=== PATIENT | female | born 1935 | race Caucasian/White ===

== ENCOUNTER 2017-05-28 09:05 | Inpatient (IN) | payer MEDICARE, OTHER ==
[~2017-05-28] VITALS: Ht 152.4 cm; Wt 50.0 kg
[2017-05-28] MEDS ORDERED: MEDROXYPROGESTERONE 2.5 MG TAB (09:19)
[2017-05-28] MEDS ORDERED: PANTOPRAZOLE SOD DR 40 MG TAB (09:19)
[2017-05-28] MEDS ORDERED: HYDROCODONE-ACETAMIN 5-325 MG (09:19)
[2017-05-28] MEDS ORDERED: [UNRECOGNIZED DRUG - OTHER] (09:19)
[2017-05-28] MEDS ORDERED: ATORVASTATIN 20 MG TABLET (09:19)
[2017-05-28] MEDS ORDERED: TRAMADOL HCL 50 MG TABLET (09:19)
[2017-05-28] MEDS ORDERED: ESTRADIOL 1 MG TABLET (09:19)
[2017-05-28] MEDS ORDERED: CLOPIDOGREL 75 MG TABLET (09:19)
[2017-05-28] MEDS ORDERED: GABAPENTIN 300 MG CAPSULE (09:19)
[2017-05-28 11:12] LABS: BASOPHILS # (AUTO) 0.1 K/uL (0.0-8.0); BASOPHILS % (AUTO) 0.6 % (0.0-2.0); EOSINOPHILS # (AUTO) 0.1 K/uL (0.0-0.7); EOSINOPHILS % (AUTO) 0.8 % (0.0-7.0); HEMATOCRIT 33.9 % (31.2-41.9); HEMOGLOBIN 11.5 g/dL (10.9-14.3); LYMPHOCYTES # (AUTO) 1.5 K/uL (20.0-40.0); LYMPHOCYTES % (AUTO) 16.4 % (20.5-51.5); MEAN CORPUSCULAR HEMOGLOBIN 35.6 uug (24.7-32.8); MEAN CORPUSCULAR HGB CONC 34 g/dL (32.3-35.6); MEAN CORPUSCULAR VOLUME 105.3 fL (75.5-95.3); MONOCYTES # (AUTO) 1.3 K/uL (2.0-10.0); MONOCYTES % (AUTO) 14.1 % (0.0-11.0); NEUTROPHILS # (AUTO) 6.1 K/uL (1.8-8.9); NEUTROPHILS % (AUTO) 68.1 % (38.5-71.5); PLATELET COUNT (AUTO) 241 K/uL (179-408); RED BLOOD CELL COUNT(AUTO) 3.22 MIL/uL (3.63-4.92); WHITE BLOOD COUNT (AUTO) 8.9 K/uL (3.8-11.8)
[2017-05-28 11:55] LABS: ALANINE AMINOTRANSFERASE 24 U/L (14-59); ALKALINE PHOSPHATASE 127 U/L (50-136); ASPARTATE AMINOTRANSFERASE 37 U/L (15-37); BILIRUBIN,DIRECT 0.1 mg/dL (0.0-0.2); BILIRUBIN,TOTAL 0.6 mg/dL (0.2-1.0); CARBON DIOXIDE 28 mmol/L (21-32); CHLORIDE 96 mmol/L (98-107); CREATININE 5.3 mg/dL (0.6-1.3); GLUCOSE 108 mg/dL (74-106); POTASSIUM 3.4 mmol/L (3.5-5.1); TOTAL PROTEIN, SERUM 6.6 g/dL (6.4-8.2); UREA NITROGEN, BLOOD 46 mg/dL (7-18)
--- NOTE | 2017-05-28 11:57 | NUR ---
merry lozano called and said she is a long time friend and has power of securities attorney for pt. pt approved it. her phone is [phone].
--- NOTE | 2017-05-28 13:01 | NUR ---
the pt does not know the doasges of the meds and she says there is no one at home to call and read off the bottles at this point.
--- NOTE | 2017-05-28 13:50 | NUR ---
called dr. arechiga for ortho consult
[2017-05-28] MEDS ORDERED: HYDROCODONE/APAP 5-325MG TABLET ONE (14:01)
[2017-05-28] MEDS ORDERED: HYDROCODONE/APAP 5-325MG TABLET PO ONE (14:15)
[2017-05-28] MEDS ORDERED: ONDANSETRON 4 MG/2 ML VIAL IV PRN (14:30)
[2017-05-28] MEDS ORDERED: MORPHINE SULFATE 2 MG/1 ML DISP.SYRIN IV PRN (14:30)
--- NOTE | 2017-05-28 14:44 | NUR ---
PT TRANSFERED TO FLOOR IN STABLE CONDITION.
[2017-05-28] MEDS: MORPHINE SULFATE 4 MG/1 ML DISP.SYRIN IV PRN (16:23)
[2017-05-28 16:30] VITALS: BP 96/39
--- NOTE | 2017-05-28 20:00 | NUR ---
nsg:pt received a/o x 4, no acute distress noted. just c/o of mild itching due to very dry skin. tele, SR. v/s stable. has left chest quintine catheter and av shunt on right upper arm. 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 on strict bedrest due to right patellar fracture. has right knee immobilizer. call light within reach.
[2017-05-28 20:06] VITALS: BP 90/44
[2017-05-28] MEDS: ATORVASTATIN 20 MG TABLET PO SCH (20:42)
[2017-05-28] MEDS: HEPARIN SODIUM,PORCINE 5,000 UNITS/ML VIAL SQ SCH (20:44)
[2017-05-28] MEDS ORDERED: POTASSIUM CHLORIDE 10 MEQ CAPSULE.SA PO ONE (20:45)
[2017-05-29 00:03] VITALS: BP 92/31
[2017-05-29] MEDS: MORPHINE SULFATE 4 MG/1 ML DISP.SYRIN IV PRN (02:30)
[2017-05-29 04:27] VITALS: BP 93/31
[2017-05-29] MEDS: PANTOPRAZOLE SODIUM 40 MG TABLET.DR PO SCH (05:41)
[2017-05-29 06:37] LABS: BASOPHILS % (AUTO) 0.6 % (0.0-2.0); EOSINOPHILS # (AUTO) 0.1 K/uL (0.0-0.7); EOSINOPHILS % (AUTO) 1.1 % (0.0-7.0); HEMATOCRIT 28.6 % (31.2-41.9); HEMOGLOBIN 9.7 g/dL (10.9-14.3); LYMPHOCYTES # (AUTO) 1.6 K/uL (20.0-40.0); LYMPHOCYTES % (AUTO) 24.6 % (20.5-51.5); MEAN CORPUSCULAR HEMOGLOBIN 35.4 uug (24.7-32.8); MEAN CORPUSCULAR HGB CONC 34 g/dL (32.3-35.6); MEAN CORPUSCULAR VOLUME 104.8 fL (75.5-95.3); MONOCYTES # (AUTO) 0.9 K/uL (2.0-10.0); MONOCYTES % (AUTO) 13.5 % (0.0-11.0); NEUTROPHILS % (AUTO) 60.2 % (38.5-71.5); PLATELET COUNT (AUTO) 222 K/uL (179-408); RED BLOOD CELL COUNT(AUTO) 2.73 MIL/uL (3.63-4.92); WHITE BLOOD COUNT (AUTO) 6.6 K/uL (3.8-11.8)
[2017-05-29 06:57] LABS: THYROID STIMULATING HORMONE 4.967 mIU/mL (0.358-3.740)
[2017-05-29 07:06] LABS: ALANINE AMINOTRANSFERASE 21 U/L (14-59); ALKALINE PHOSPHATASE 108 U/L (50-136); ASPARTATE AMINOTRANSFERASE 28 U/L (15-37); BILIRUBIN,TOTAL 0.5 mg/dL (0.2-1.0); CARBON DIOXIDE 28 mmol/L (21-32); CHLORIDE 96 mmol/L (98-107); CHOLESTEROL 168 mg/dL (<200); CREATININE 6.5 mg/dL (0.6-1.3); GLUCOSE 105 mg/dL (74-106); HDL CHOLESTEROL 82 mg/dL (40-60); MAGNESIUM 1.9 mg/dL (1.8-2.4); PHOSPHOROUS 6.4 mg/dL (2.5-4.9); TOTAL PROTEIN, SERUM 5.6 g/dL (6.4-8.2); TRIGLYCERIDES 111 MG/DL (30-150); UREA NITROGEN, BLOOD 56 mg/dL (7-18)
[2017-05-29 07:18] LABS: CREATINE KINASE, TOTAL 418 U/L (26-192)
[2017-05-29] MEDS: HEPARIN SODIUM,PORCINE 5,000 UNITS/ML VIAL SQ SCH (09:09)
[2017-05-29] MEDS: GABAPENTIN 300 MG CAPSULE PO SCH (09:09)
--- NOTE | 2017-05-29 09:39 | NUR ---
Pt.on HD,tolerated well,no s/s of distress,denies any pain.
[2017-05-29 10:48] LABS: IRON, SERUM 32 ug/dL (50-175)
[2017-05-29 11:21] VITALS: BP 96/48
--- NOTE | 2017-05-29 13:43 | NUR ---
PT. A/A/OX3 WATCHING TV, NO S/S OF DISTRESS,DENIES PAIN @ TIME.
[2017-05-29 15:22] VITALS: BP 106/41
--- NOTE | 2017-05-29 18:10 | NUR ---
No changes in pt.condition.
--- NOTE | 2017-05-29 19:30 | NUR ---
PT IN ROOM ASLEEP IN NO ACUTE DISTRESS SINCE HD EARLIER TODAY. PT NOTED SINUS RHYTHM NOTED. CONTINUE TO MONITOR.
[2017-05-29 20:00] VITALS: BP 90/55
[2017-05-29] MEDS: ACETAMINOPHEN 325 MG TABLET PO PRN (21:12)
[2017-05-29] MEDS: ATORVASTATIN 20 MG TABLET PO SCH (21:12)
--- NOTE | 2017-05-30 01:00 | NUR ---
Pt asleep in no acute distress. Call light within normal range. Pt maintaining medsurg unit at this time.
--- NOTE | 2017-05-30 05:17 | NUR ---
Pt in room alert awake in no acute distress. Denies any mccarthy but minimal discomfort to right lower extremity. Immobilizer in place and pt is able to make needs known. States her hearing aid batteries are no longer working. V/S are WNL. Pt repositioned and HOB maintained 30 degreegs. Continue to monitor. AV shunts are in tact with no active bleeding noted. Call light placed within reach.
[2017-05-30] MEDS: ACETAMINOPHEN 325 MG TABLET PO PRN ×2 (05:28→15:58)
[2017-05-30] MEDS: PANTOPRAZOLE SODIUM 40 MG TABLET.DR PO SCH (06:02)
[2017-05-30 06:33] VITALS: BP 105/47
--- NOTE | 2017-05-30 07:55 | NUR ---
RECEIVED SHIFT REPORT FROM WINDOW CLERK NURSE. PATIENT A/O, STABLE CONDITION, NO S/S OF DISTRESS. BED IN LOCKED/LOW POSITION, SIDE RAILS UP X2, BED ALARM ON, CALL LIGHT WITHIN REACH. SAFETY/COMFORT WILL BE PROVIDED.
[2017-05-30 08:11] LABS: BASOPHILS % (AUTO) 0.6 % (0.0-2.0); EOSINOPHILS # (AUTO) 0.1 K/uL (0.0-0.7); EOSINOPHILS % (AUTO) 1.3 % (0.0-7.0); HEMATOCRIT 29.7 % (31.2-41.9); LYMPHOCYTES # (AUTO) 1.7 K/uL (20.0-40.0); MEAN CORPUSCULAR HEMOGLOBIN 35.4 uug (24.7-32.8); MEAN CORPUSCULAR HGB CONC 34 g/dL (32.3-35.6); MEAN CORPUSCULAR VOLUME 105.4 fL (75.5-95.3); MONOCYTES # (AUTO) 0.9 K/uL (2.0-10.0); MONOCYTES % (AUTO) 14.9 % (0.0-11.0); NEUTROPHILS # (AUTO) 3.5 K/uL (1.8-8.9); NEUTROPHILS % (AUTO) 56.2 % (38.5-71.5); PLATELET COUNT (AUTO) 200 K/uL (179-408); RED BLOOD CELL COUNT(AUTO) 2.82 MIL/uL (3.63-4.92); WHITE BLOOD COUNT (AUTO) 6.2 K/uL (3.8-11.8)
[2017-05-30 08:20] LABS: ALANINE AMINOTRANSFERASE 22 U/L (14-59); ALKALINE PHOSPHATASE 102 U/L (50-136); ASPARTATE AMINOTRANSFERASE 29 U/L (15-37); BILIRUBIN,TOTAL 0.4 mg/dL (0.2-1.0); CARBON DIOXIDE 31 mmol/L (21-32); CHLORIDE 99 mmol/L (98-107); CREATININE 4.5 mg/dL (0.6-1.3); GLUCOSE 132 mg/dL (74-106); MAGNESIUM 1.9 mg/dL (1.8-2.4); PHOSPHOROUS 4.7 mg/dL (2.5-4.9); POTASSIUM 3.2 mmol/L (3.5-5.1); TOTAL PROTEIN, SERUM 5.7 g/dL (6.4-8.2); UREA NITROGEN, BLOOD 30 mg/dL (7-18)
[2017-05-30] MEDS: CLOPIDOGREL 75 MG TABLET PO SCH (08:20)
[2017-05-30] MEDS: GABAPENTIN 300 MG CAPSULE PO SCH (08:20)
[2017-05-30] MEDS ORDERED: POTASSIUM CHLORIDE 20 MEQ TAB.PRT.SR PO ONE (11:00)
[2017-05-30 11:09] VITALS: BP 119/42
[2017-05-30 15:16] VITALS: BP 91/43
[2017-05-30] MEDS: ASPIRIN EC 81 MG TABLET.DR PO SCH (15:47)
--- NOTE | 2017-05-30 17:48 | NUR ---
PATIENT RESTING COMFORTABLY IN BED AT THIS MOMENT. TOLERATING DIET. STABLE CONDITION, NO S/S OF DISTRESS. PATIENT HAS NOT HAD A BOWEL MOVEMENT, AND IS ANURIC (PENDING STOOL OB AND URINE CULTURE). CONTINUES TO BE ON BEDREST DUE TO RIGHT KNEE FRACTURE. PAIN MANAGEMENT PROVIDED. SKIN CARE PROVIDED. BED IN LOCKED/LOW POSITION, SIDE RAILS UP X2, BED ALARM ON, CALL LIGHT WITHIN REACH. SAFETY/COMFORT PROVIDED.
--- NOTE | 2017-05-30 19:27 | NUR ---
PT IN ROOM ALERT AWAKE IN NO ACUTE DISTRESS. ABLE TO FOLLOW SIMPLE COMMANDS WITHOUT DIFFICULTY. MAINTAINING RIGHT KNEE IMMOBILIZED. DENIES ANY PAIN OR DISCOMFORT AT THIS TIME. CONTINUE TO MONITOR. CALL LIGHT PLACED WITHIN REACH.
[2017-05-30 20:13] VITALS: BP 95/34
[2017-05-30] MEDS: TRAMADOL HCL 50 MG TABLET PO PRN (21:25)
[2017-05-30] MEDS: ATORVASTATIN 20 MG TABLET PO SCH (21:25)
[2017-05-31] MEDS: ACETAMINOPHEN 325 MG TABLET PO PRN ×2 (00:30→06:08)
--- NOTE | 2017-05-31 01:00 | NUR ---
PT IN ROOM ALERT AWAKE AND REQUESTED TYLENOL FOR PAIN TO RIGHT KNEE. CONTINUE TO MONITOR. CALL LIGHT PLACED WITHIN REACH.
[2017-05-31 04:00] VITALS: BP 111/43
[2017-05-31] MEDS: TRAMADOL HCL 50 MG TABLET PO PRN (04:10)
--- NOTE | 2017-05-31 06:00 | NUR ---
PT IN ROOM ALERT AWAKE AND HAS BEEN RECEIVING PRN TYLENOL AND TRAMADOL D/T PAIN TO RIGHT KNEE. PT UNABLE TO URINATE OR HAVE BOWEL MOVEMENT BUT STATES 'I FEEL LIKE I CAN GO BUT NOTHING IS COMING OUT". PT MADE AWARE OF UPCOMING DIALYSIS. NO NEW ORDERS AT THIS TIME. CONTINUE TO MONITOR. CALL LIGHT PLACED WITHIN REACH.
[2017-05-31 06:06] LABS: BASOPHILS % (AUTO) 0.6 % (0.0-2.0); EOSINOPHILS # (AUTO) 0.2 K/uL (0.0-0.7); EOSINOPHILS % (AUTO) 2.8 % (0.0-7.0); HEMATOCRIT 28.4 % (31.2-41.9); HEMOGLOBIN 9.6 g/dL (10.9-14.3); LYMPHOCYTES # (AUTO) 1.8 K/uL (20.0-40.0); LYMPHOCYTES % (AUTO) 28.2 % (20.5-51.5); MEAN CORPUSCULAR HEMOGLOBIN 35.3 uug (24.7-32.8); MEAN CORPUSCULAR HGB CONC 34 g/dL (32.3-35.6); MEAN CORPUSCULAR VOLUME 104.9 fL (75.5-95.3); MONOCYTES # (AUTO) 0.9 K/uL (2.0-10.0); MONOCYTES % (AUTO) 13.3 % (0.0-11.0); NEUTROPHILS # (AUTO) 3.6 K/uL (1.8-8.9); NEUTROPHILS % (AUTO) 55.1 % (38.5-71.5); PLATELET COUNT (AUTO) 215 K/uL (179-408); RED BLOOD CELL COUNT(AUTO) 2.71 MIL/uL (3.63-4.92); WHITE BLOOD COUNT (AUTO) 6.5 K/uL (3.8-11.8)
[2017-05-31] MEDS: PANTOPRAZOLE SODIUM 40 MG TABLET.DR PO SCH (06:08)
[2017-05-31 06:19] LABS: ALANINE AMINOTRANSFERASE 18 U/L (14-59); ALKALINE PHOSPHATASE 103 U/L (50-136); ASPARTATE AMINOTRANSFERASE 23 U/L (15-37); BILIRUBIN,TOTAL 0.3 mg/dL (0.2-1.0); CARBON DIOXIDE 30 mmol/L (21-32); CHLORIDE 95 mmol/L (98-107); CREATININE 5.9 mg/dL (0.6-1.3); GLUCOSE 106 mg/dL (74-106); MAGNESIUM 1.8 mg/dL (1.8-2.4); PHOSPHOROUS 5.3 mg/dL (2.5-4.9); POTASSIUM 4.4 mmol/L (3.5-5.1); TOTAL PROTEIN, SERUM 5.7 g/dL (6.4-8.2); UREA NITROGEN, BLOOD 43 mg/dL (7-18)
--- NOTE | 2017-05-31 07:07 | NUR ---
PATIENT RESTING COMFORTABLY IN BED AT THIS TIME. STABLE CONDITION, NO S/S OF DISTRESS. PLANNED TO HAVE DIALYSIS TODAY. BED IN LOCKED/LOW POSITION, SIDE RAILS UP X2, BED ALARM ON, CALL LIGHT WITHIN REACH. COMFORT/SAFETY WILL BE PROVIDED.
--- NOTE | 2017-05-31 08:00 | NUR ---
DIALYSIS STARTED AT THIS TIME. MORNING MEDICATIONS WILL BE HELD UNTIL AFTER DIALYSIS IS COMPLETED - 0900 PLAVIX HELD - 0900 ASPIRIN HELD - 0900 GABAPENTIN HELD
[2017-05-31 11:26] VITALS: BP 110/43
[2017-05-31] MEDS ORDERED: BISACODYL 10 MG SUPP.RECT RC PRN (11:45)
[2017-05-31] MEDS ORDERED: BISACODYL 5 MG TABLET.DR PO ONE (11:45)
[2017-05-31] MEDS ORDERED: MIRALAX 17 GM POWD.PACK PO PRN (11:45)
[2017-05-31] MEDS: GABAPENTIN 300 MG CAPSULE PO SCH (11:49)
[2017-05-31] MEDS: CLOPIDOGREL 75 MG TABLET PO SCH (11:49)
[2017-05-31] MEDS: ASPIRIN EC 81 MG TABLET.DR PO SCH (11:49)
[2017-05-31] MEDS: DOCUSATE SODIUM 100 MG CAPSULE PO SCH ×2 (11:54→20:05)
[2017-05-31 15:12] VITALS: BP 114/46
--- NOTE | 2017-05-31 17:44 | NUR ---
PATIENT HAS BEEN RESTING COMFORTABLY IN BED THROUGHOUT THE DAY. VERBALIZED THAT SHE FELT WEAK AFTER DIALYSIS. PATIENT IN STABLE CONDITION, NO S/S OF DISTRESS. VITAL SIGNS STABLE. PT EVALUATION WAS DONE TODAY AND PATIENT HAS VERY UNSTEADY GAIT DUE TO WEAKNESS. DIALYSIS DONE TODAY, 1.5 LITERS OUT. PATIENT HAS NOT HAD BOWEL MOVEMENT EVEN WITH COLACE AND DULCOLAX ADMINISTERED TODAY. HAS NOT URINATED. PATIENT HAS BEEN TOLERATING DIET. KNEE BRACE CONTINUES TO BE ON FOR RIGHT KNEE. BED IN LOCKED/LOW POSITION, SIDE RAILS UP X2, BED ALARM ON, CALL LIGHT WITHIN REACH.
[2017-05-31 18:06] VITALS: BP 115/80
[2017-05-31 18:13] VITALS: BP 119/74
--- NOTE | 2017-05-31 19:25 | NUR ---
PT RECEIVED IN BED, AWAKE. A/OX4. ABLE TO MAKE NEEDS KNOWN. V/S STABLE. IN NO ACUTE DISTRESS. NO C/O PAIN AT THIS TIME. IV INTACT AND PATENT. ON RA, TOLERATING WELL. AFEBRILE. AV SHUNT ON LEXX AND LEDT SUBCLAV[place] REGION, THRILL FELT. RIGHT KNEWW IN BRACE, ELEVATED. SAFETY MEASURES IMPLEMENTED. BED ALARM SET. CALL LIGHT WITHIN REACH.
[2017-05-31 20:00] VITALS: BP 120/38
[2017-05-31] MEDS: ATORVASTATIN 20 MG TABLET PO SCH (20:05)
[2017-06-01] MEDS: MORPHINE SULFATE 4 MG/1 ML DISP.SYRIN IV PRN ×2 (03:11→14:35)
[2017-06-01] MEDS: TRAMADOL HCL 50 MG TABLET PO PRN (03:45)
[2017-06-01 04:44] VITALS: BP 122/48
[2017-06-01] MEDS: PANTOPRAZOLE SODIUM 40 MG TABLET.DR PO SCH (06:13)
--- NOTE | 2017-06-01 06:15 | NUR ---
END OF SHIFT NOTES. PT SLEPT INTERMITTENTLY THROUGHOUT SHIFT. IN STABLE CONDITION. PT C/O OF RIGHT LEG PAIN MANAGED THROUGHOUT SHIFT. PAIN MEDICATION ADMINISTERED ORDERED. PT RIGHT LEG BRACE IN PLACE, NO ACUTE CHANGES NOTED. BILATERAL LEGS ELEVATED. PT CONTINUES WITH NO BM, ADAM SOFTENER PROVIDED. HOB ELEVATED. ALL NEEDS ATTENDED. SAFETY MAINTAINED. CALL LIGHT WITHIN REACH.
[2017-06-01] MEDS: GABAPENTIN 300 MG CAPSULE PO SCH (08:02)
[2017-06-01] MEDS: ASPIRIN EC 81 MG TABLET.DR PO SCH (08:02)
[2017-06-01] MEDS: CLOPIDOGREL 75 MG TABLET PO SCH (08:02)
[2017-06-01] MEDS: DOCUSATE SODIUM 100 MG CAPSULE PO SCH ×2 (08:02→20:59)
--- NOTE | 2017-06-01 09:47 | NUR ---
plan of care for today is pain management and continue to monitor for BM and improve constipation. pt given colace for constipation. Continue to monitor pt.
[2017-06-01] MEDS ORDERED: LACTULOSE 20 G/30 ML LIQUID UDC PO ONE (11:15)
[2017-06-01] MEDS ORDERED: BISACODYL 10 MG SUPP.RECT RC ONE (11:15)
[2017-06-01 11:30] VITALS: BP 105/47
[2017-06-01 11:35] LABS: BASOPHILS % (AUTO) 0.7 % (0.0-2.0); EOSINOPHILS # (AUTO) 0.2 K/uL (0.0-0.7); EOSINOPHILS % (AUTO) 3.1 % (0.0-7.0); HEMATOCRIT 27.2 % (31.2-41.9); HEMOGLOBIN 9.1 g/dL (10.9-14.3); LYMPHOCYTES # (AUTO) 1.3 K/uL (20.0-40.0); LYMPHOCYTES % (AUTO) 20.8 % (20.5-51.5); MEAN CORPUSCULAR HEMOGLOBIN 35.1 uug (24.7-32.8); MEAN CORPUSCULAR HGB CONC 34 g/dL (32.3-35.6); MEAN CORPUSCULAR VOLUME 104.8 fL (75.5-95.3); MONOCYTES # (AUTO) 0.9 K/uL (2.0-10.0); MONOCYTES % (AUTO) 13.6 % (0.0-11.0); NEUTROPHILS # (AUTO) 3.9 K/uL (1.8-8.9); NEUTROPHILS % (AUTO) 61.8 % (38.5-71.5); PLATELET COUNT (AUTO) 188 K/uL (179-408); WHITE BLOOD COUNT (AUTO) 6.3 K/uL (3.8-11.8)
[2017-06-01 11:57] LABS: ALANINE AMINOTRANSFERASE 23 U/L (14-59); ALKALINE PHOSPHATASE 106 U/L (50-136); ASPARTATE AMINOTRANSFERASE 17 U/L (15-37); BILIRUBIN,TOTAL 0.3 mg/dL (0.2-1.0); CARBON DIOXIDE 29 mmol/L (21-32); CHLORIDE 97 mmol/L (98-107); CREATININE 5.6 mg/dL (0.6-1.3); GLUCOSE 116 mg/dL (74-106); MAGNESIUM 1.9 mg/dL (1.8-2.4); PHOSPHOROUS 5.2 mg/dL (2.5-4.9); POTASSIUM 4.3 mmol/L (3.5-5.1); TOTAL PROTEIN, SERUM 5.6 g/dL (6.4-8.2); UREA NITROGEN, BLOOD 43 mg/dL (7-18)
[2017-06-01 15:26] VITALS: BP 125/52
--- NOTE | 2017-06-01 18:19 | NUR ---
PT'S PAIN MANAGED WITH PAIN MEDS, BREATHING TECHNIQUES AND DISTRACTION. PT IS AGREEABLE WITH CARE. PT RESTING WITH NO SIGNS OF RESPIRATORY DISTRESS. BED AT LOWEST LOCKED POSITION. REDNESS AND SMALL CUT IN SACRAL AREA. MEPILEX APPLIED TO AREA. PT DENIES PAIN AT THIS TIME. PT AGREEABLE WITH PLAN OF CARE. CONTINUE TO MONITOR PT.
--- NOTE | 2017-06-01 18:43 | NUR ---
PT HAD A BM, STOOL WAS COLLECTED AND SENT TO LAB.
[2017-06-01 20:05] VITALS: BP 120/74
[2017-06-01 20:09] LABS: *OCCULT BLOOD STOOL NEGATIVE (NEGATIVE)
[2017-06-01] MEDS: ATORVASTATIN 20 MG TABLET PO SCH (20:59)
--- NOTE | 2017-06-01 22:39 | NUR ---
VENRACQUELD DOPPLER OF RUE CURRENTLY BEING PERFORMED AT BEDSIDE. PATIENT HAS QUESTIONS REGARDING HER PLAN OF CARE. SAYS SHES NOT READY TO BE DISCHARGED. TOLD PATIENT WILL DISCUSS PLAN OF CARE WITH DOCTOR TOMORROW DURING HIS ROUNDS.
[2017-06-02 05:56] VITALS: BP 115/42
[2017-06-02 06:36] LABS: ALANINE AMINOTRANSFERASE 18 U/L (14-59); ALKALINE PHOSPHATASE 98 U/L (50-136); ASPARTATE AMINOTRANSFERASE 16 U/L (15-37); BILIRUBIN,TOTAL 0.4 mg/dL (0.2-1.0); CARBON DIOXIDE 24 mmol/L (21-32); CHLORIDE 97 mmol/L (98-107); CREATININE 6.1 mg/dL (0.6-1.3); GLUCOSE 107 mg/dL (74-106); PHOSPHOROUS 6.6 mg/dL (2.5-4.9); POTASSIUM 4.1 mmol/L (3.5-5.1); TOTAL PROTEIN, SERUM 5.8 g/dL (6.4-8.2); UREA NITROGEN, BLOOD 52 mg/dL (7-18)
[2017-06-02] MEDS: PANTOPRAZOLE SODIUM 40 MG TABLET.DR PO SCH (06:45)
[2017-06-02 06:59] LABS: BASOPHILS % (AUTO) 0.5 % (0.0-2.0); EOSINOPHILS # (AUTO) 0.2 K/uL (0.0-0.7); HEMATOCRIT 28.5 % (31.2-41.9); HEMOGLOBIN 9.5 g/dL (10.9-14.3); LYMPHOCYTES # (AUTO) 1.3 K/uL (20.0-40.0); LYMPHOCYTES % (AUTO) 14.3 % (20.5-51.5); MEAN CORPUSCULAR HEMOGLOBIN 34.6 uug (24.7-32.8); MEAN CORPUSCULAR HGB CONC 33 g/dL (32.3-35.6); MEAN CORPUSCULAR VOLUME 103.8 fL (75.5-95.3); MONOCYTES # (AUTO) 1.1 K/uL (2.0-10.0); MONOCYTES % (AUTO) 12.8 % (0.0-11.0); NEUTROPHILS # (AUTO) 6.3 K/uL (1.8-8.9); NEUTROPHILS % (AUTO) 70.4 % (38.5-71.5); PLATELET COUNT (AUTO) 213 K/uL (179-408); RED BLOOD CELL COUNT(AUTO) 2.75 MIL/uL (3.63-4.92)
[2017-06-02 07:07] LABS: WHITE BLOOD COUNT (AUTO) 8.9 K/uL (3.8-11.8)
[2017-06-02] MEDS: DOCUSATE SODIUM 100 MG CAPSULE PO SCH (09:00)
[2017-06-02] MEDS: ASPIRIN EC 81 MG TABLET.DR PO SCH (09:54)
[2017-06-02] MEDS: GABAPENTIN 300 MG CAPSULE PO SCH (09:54)
[2017-06-02] MEDS: MORPHINE SULFATE 4 MG/1 ML DISP.SYRIN IV PRN (09:54)
[2017-06-02] MEDS: CLOPIDOGREL 75 MG TABLET PO SCH (09:55)
[2017-06-02 11:20] VITALS: BP 113/47
--- NOTE | 2017-06-02 11:33 | NUR ---
PT RECEIVED DIALYSIS TODAY, 2L REMOVED. RIGHT ARM IS SWOLLEN. ARM WAS ELEVATED AND ICE APPLIED. PT BODY ASSESSED, PT HAS SACRAL REDNESS WITH SMALL CUT. RIGHT HEEL IS PAINFUL TO THE TOUCH AND BLACK. PICTURE TAKEN AND PLACED IN CHART.A HEEL MEDIX BOOT WAS APPLIED. PT SACRAL AREA HAD A MEPILEX APPLIED AND PILLOW WEDGED UNDER ONE HIP. POSITIONING EFFECTIVE.
[2017-06-02] MEDS ORDERED: POLY17PO4 PO (12:14)
[2017-06-02] MEDS ORDERED: ASPI-618 PO (12:14)
[2017-06-02] MEDS ORDERED: PANT40TA2 PO (12:14)
[2017-06-02] MEDS ORDERED: TRAM50TA2 PO (12:14)
[2017-06-02] MEDS ORDERED: ATOR20TA PO (12:14)
[2017-06-02] MEDS ORDERED: BISA10SU12 RC (12:14)
[2017-06-02] MEDS ORDERED: DOCU100C36 PO (12:14)
[2017-06-02] MEDS ORDERED: GABA-534 PO (12:14)
[2017-06-02] MEDS ORDERED: ACET325T53 PO (12:14)
[2017-06-02] MEDS ORDERED: HYDR-3326 PO (12:14)
[2017-06-02] MEDS ORDERED: CLOP75TA15 PO (12:14)
[2017-06-02 15:30] VITALS: BP 115/40
--- NOTE | 2017-06-02 18:26 | NUR ---
PT OBSERVED RESTING IN BED RIGHT ARM ELEVATED AND ICED. BOOT ON RIGHT FOOT. NO SIGNS OF RESPIRATORY DISTRESS. STABLE. EXIT-CARE AND D/C PAPER WORK SIGNED. REPORT GIVEN TO JAQUAN AT [facility]. AMBULANCE SCHEDULE TO ARRIVE ON UNIT AT 1900. PICTURES TAKEN AND PLACED IN THE CHART OF SACRAL AREA, RIGHT HEELS AND PREVIOUS PICTURES FROM ADMISSION.
--- NOTE | 2017-06-02 20:15 | NUR ---
PATIENT DISCHARGED AND TRANSFERRED VIA GURNEY WITH STICKER MACHINE OPERATOR FROM [facility]. VITAL SIGNS STABLE. IN NO APPARENT DISTRESS. ALL BELONGINGS AND DISCHARGE PAPERWORK WITH PATIENT. RIGHT KNEE IMMOBILZER AND RIGHT HEEL FLOATING BOOT ON PATIENT. IV REMOVED.
== END 2017-06-02 20:14 | DRG 562 ==
LOC: ER 09:05 → TELE 14:24 → MED 05-29 21:17 → UNDODISIN 06-02 20:06
PROVIDERS: ADMIT Internal Medicine; ATTEND Internal Medicine
PROC: 5A1D70Z Performance of Urinary Filtration, Intermittent, Less than 6 Hours Per Day (ICD-10-PCS; principal; 2017-05-29)
DX: S82.091A Other fracture of right patella, initial encounter for closed fracture (principal); N18.6 End stage renal disease; I21.A1 Myocardial infarction type 2; E44.0 Moderate protein-calorie malnutrition; C90.00 Multiple myeloma not having achieved remission; I48.91 Unspecified atrial fibrillation; E87.1 Hypo-osmolality and hyponatremia; W01.0XXA Fall on same level from slipping, tripping and stumbling without subsequent striking against object, initial encounter; D63.1 Anemia in chronic kidney disease; S20.219A Contusion of unspecified front wall of thorax, initial encounter; T79.6XXA Traumatic ischemia of muscle, initial encounter; Z79.02 Long term (current) use of antithrombotics/antiplatelets; Y93.01 Activity, walking, marching and hiking; Y92.480 Sidewalk as the place of occurrence of the external cause; Y99.8 Other external cause status; Z99.2 Dependence on renal dialysis; Z86.718 Personal history of other venous thrombosis and embolism; M25.461 Effusion, right knee; K59.00 Constipation, unspecified; M85.80 Other specified disorders of bone density and structure, unspecified site; Z79.82 Long term (current) use of aspirin; Z98.82 Breast implant status; Z90.49 Acquired absence of other specified parts of digestive tract; Z79.899 Other long term (current) drug therapy; Z87.440 Personal history of urinary (tract) infections; G89.29 Other chronic pain; M54.9 Dorsalgia, unspecified; Z68.21 Body mass index [BMI] 21.0-21.9, adult; E87.6 Hypokalemia; T85.898A Other specified complication of other internal prosthetic devices, implants and grafts, initial encounter; R60.0 Localized edema; R59.1 Generalized enlarged lymph nodes; I73.9 Peripheral vascular disease, unspecified
CPT/HCPCS: 36415; 70030-TC; 70450; 71045; 71250; 73130; 83550; 83735; 84100; 84443; 85025; 85730; 90937; 93005; 93307; A4663; J1644; J2270

== ENCOUNTER 2017-06-20 09:54 | Inpatient (IN) | payer MEDICARE, OTHER ==
[~2017-06-20] VITALS: Ht 152.4 cm; Wt 45.4 kg
[~2017-06-20 09:54] MED LIST: ACET325T53 PO; ASPI-618 PO; ATOR20TA PO; BISA10SU12 RC; CLOP75TA15 PO; DOCU100C36 PO; GABA-534 PO; HYDR-3326 PO; PANT40TA2 PO; POLY17PO4 PO; TRAM50TA2 PO
[2017-06-20] MEDS ORDERED: NALOXONE HCL 0.4 MG/ML AMPUL ONE (10:22)
[2017-06-20] MEDS ORDERED: NALOXONE HCL 0.4 MG/ML AMPUL IV ONE (10:23)
[2017-06-20] MEDS ORDERED: CEFTRIAXONE 1 G in IV DEXTROSE 5% 50 ML IV ONE (10:34)
[2017-06-20] MEDS ORDERED: ALBUTEROL SULFATE 2.5 MG/3 ML NEBU NEB ONE (10:36)
[2017-06-20 10:39] LABS: BASOPHILS # (AUTO) 0.1 K/uL (0.0-8.0); BASOPHILS % (AUTO) 0.2 % (0.0-2.0); HEMATOCRIT 36.5 % (31.2-41.9); HEMOGLOBIN 11.4 g/dL (10.9-14.3); LYMPHOCYTES # (AUTO) 0.9 K/uL (20.0-40.0); LYMPHOCYTES % (AUTO) 3.3 % (20.5-51.5); MEAN CORPUSCULAR HEMOGLOBIN 32.9 uug (24.7-32.8); MEAN CORPUSCULAR HGB CONC 31 g/dL (32.3-35.6); MEAN CORPUSCULAR VOLUME 105.9 fL (75.5-95.3); MONOCYTES # (AUTO) 1.6 K/uL (2.0-10.0); MONOCYTES % (AUTO) 5.8 % (0.0-11.0); NEUTROPHILS # (AUTO) 24.9 K/uL (1.8-8.9); NEUTROPHILS % (AUTO) 90.7 % (38.5-71.5); PLATELET COUNT (AUTO) 332 K/uL (179-408); RED BLOOD CELL COUNT(AUTO) 3.45 MIL/uL (3.63-4.92); WHITE BLOOD COUNT (AUTO) 27.5 K/uL (3.8-11.8)
[2017-06-20] MEDS ORDERED: IV NORMAL SALINE 250 ML IV ONE (10:45)
[2017-06-20] MEDS ORDERED: methylPREDNISolone SOD SUCC 125 MG/2 ML VIAL IV ONE (10:45)
[2017-06-20] MEDS ORDERED: IPRATROPIUM BROMIDE 0.5 MG/2.5 ML NEBU NEB ONE (10:45)
[2017-06-20 10:48] LABS: BAND % (MANUAL) 3 % (0-10); CARBON DIOXIDE 27 mmol/L (21-32); CHLORIDE 96 mmol/L (98-107); CREATININE 4.5 mg/dL (0.6-1.3); GLUCOSE 148 mg/dL (74-106); LYMPHOCYTES % (MANUAL) 3 % (20-40); MONOCYTES % (MANUAL) 5 % (2-10); NEUTROPHILS % (MANUAL) 89 % (42-75); UREA NITROGEN, BLOOD 42 mg/dL (7-18)
[2017-06-20 10:49] LABS: ABG BASE EXCESS -1.7 mmol/L; ABG HCO3 26.8 mmol/L; ABG PCO2 63.4 mmHg (35.0-45.0); ABG PH 7.244 (7.350-7.450); ABG PO2 15.6 mmHg (75.0-100.0); ABG SITE RIGHT RADIAL; COHb 0.5 % (0.5-1.5); MetHb 1.3 % (0.0-1.5); O2Hb 10.4 % (94.0-97.0); VENT MODE Nasal Cannula
[2017-06-20] MEDS ORDERED: methylPREDNISolone SOD SUCC 125 MG/2 ML VIAL ONE (10:49)
[2017-06-20 10:51] LABS: POTASSIUM 2.8 mmol/L (3.5-5.1)
[2017-06-20] MEDS ORDERED: ALBUTEROL SULFATE 2.5 MG/3 ML NEBU ONE (10:55)
[2017-06-20] MEDS ORDERED: IPRATROPIUM BROMIDE 0.5 MG/2.5 ML NEBU ONE (10:55)
[2017-06-20 10:59] LABS: ALANINE AMINOTRANSFERASE 27 U/L (14-59); ALKALINE PHOSPHATASE 132 U/L (50-136); ASPARTATE AMINOTRANSFERASE 144 U/L (15-37); BILIRUBIN,TOTAL 0.4 mg/dL (0.2-1.0); CREATINE KINASE, TOTAL 602 U/L (26-192); TOTAL PROTEIN, SERUM 7.2 g/dL (6.4-8.2)
[2017-06-20] MEDS ORDERED: CEFTRIAXONE 1 G VIAL ONE (10:59)
[2017-06-20] MEDS ORDERED: POTASSIUM CHLORIDE 50 ML IV SCH (11:00)
[2017-06-20] MEDS ORDERED: FUROSEMIDE 20 MG/2 ML VIAL IV ONE (11:09)
[2017-06-20] MEDS ORDERED: FUROSEMIDE 20 MG/2 ML VIAL ONE (11:29)
[2017-06-20] MEDS ORDERED: ONDANSETRON 4 MG/2 ML VIAL IV PRN (11:45)
[2017-06-20] MEDS ORDERED: Z GUARD REMEDY PASTE 57 GM TUBE TOP PRN (11:45)
[2017-06-20] MEDS ORDERED: ACETAMINOPHEN 325 MG TABLET PO PRN (11:45)
[2017-06-20] MEDS ORDERED: MAGNESIUM HYDROXIDE 30 ML LIQUID UDC PO PRN (11:45)
[2017-06-20] MEDS ORDERED: HYDROCODONE/APAP 5-325MG TABLET PO PRN (11:45)
[2017-06-20] MEDS ORDERED: ALBUTEROL SULFATE 2.5 MG/3 ML NEBU NEB PRN (11:45)
[2017-06-20] MEDS ORDERED: HYDR-3326 PO (11:46)
[2017-06-20] MEDS ORDERED: FOLI0.8T43 PO (11:46)
[2017-06-20] MEDS ORDERED: HYDR-552 PO (11:46)
[2017-06-20] MEDS ORDERED: BISA10SU8 RC (11:46)
[2017-06-20] MEDS ORDERED: NEPRO PO (11:46)
--- NOTE | 2017-06-20 11:50 | NUR ---
Pt's daughter spoke to DR villanueva and Dr bryant to make Pt comfort measures only. Er MD spoke to family as well.
[2017-06-20] MEDS ORDERED: GABAPENTIN 300 MG CAPSULE PO SCH (12:00)
[2017-06-20] MEDS ORDERED: CLOPIDOGREL 75 MG TABLET PO SCH (12:00)
[2017-06-20] MEDS ORDERED: BISACODYL 10 MG SUPP.RECT RC PRN (12:00)
[2017-06-20] MEDS ORDERED: MIRALAX 17 GM POWD.PACK PO PRN (12:00)
[2017-06-20] MEDS ORDERED: ASPIRIN 300 MG RECTAL SUPP RC ONE (12:00)
[2017-06-20] MEDS ORDERED: HEPARIN/D5W DRIP 500 ML IV PRN ×2 (12:00)
--- NOTE | 2017-06-20 12:10 | NUR ---
MRSA collected and sent to Lab, belonging list completed.
[2017-06-20] MEDS ORDERED: MORPHINE SULFATE 2 MG/1 ML DISP.SYRIN IV ONE ×2 (12:15→12:30)
[2017-06-20] MEDS ORDERED: MORPHINE SULFATE 4 MG/1 ML DISP.SYRIN ONE (12:25)
--- NOTE | 2017-06-20 13:13 | NUR ---
Patient is resting comfortably in bed with eyes closed. family at the bedside.
--- NOTE | 2017-06-20 13:43 | NUR ---
Pt out of ER to be admited to M/S/Tele.
[2017-06-20 14:04] VITALS: BP 103/49
--- NOTE | 2017-06-20 14:15 | NUR ---
Received this admission from ER per abebe, 81 yo female, with diagnosis of CHF, Pneumonia. Admitted to ID for Comfort Care. Transferred to bed comfortably. Routine admission care rendered. Awake, responsive to painful stimuli, weak, garbled speech, generalized weakness. RLE with immobilizer. Left chest HD cath. Right wrist and LFA saline lock. Dr. Atkins informed of admission
[2017-06-20] MEDS ORDERED: LORAZEPAM 2 MG/1 ML VIAL IV PRN (14:45)
[2017-06-20 15:14] VITALS: BP 100/50
--- NOTE | 2017-06-20 15:30 | NUR ---
Morphine drip started at 2 mg/hr. Family and friends at bedside
[2017-06-20] MEDS: MORPHINE SULFATE PF IV DRIP 250 MG in IV DEXTROSE 5% 240 ML IV PRN (15:31)
[2017-06-20 16:40] VITALS: BP 99/48
--- NOTE | 2017-06-20 18:36 | NUR ---
Lethargic. Morphine drip infusing. Family at bedside
[2017-06-20 19:00] VITALS: BP 82/44
--- NOTE | 2017-06-20 19:35 | NUR ---
Received pt in bed. Asleep, appears weak and lethargic. No signs of pain observed. Appears comfortable in bed. On Morphine drip per order. Bed on low position. Family at bedside.
--- NOTE | 2017-06-20 20:30 | NUR ---
INCREASED MORPHINE TO 3CC/HR FOR COMFORT.
[2017-06-20] MEDS ORDERED: DOCUSATE SODIUM 100 MG CAPSULE PO SCH (21:00)
[2017-06-20] MEDS ORDERED: ATORVASTATIN 20 MG TABLET PO SCH (21:00)
[2017-06-20] MEDS ORDERED: FUROSEMIDE 40 MG/4 ML VIAL IV SCH (21:00)
[2017-06-21 04:00] VITALS: BP 105/47
--- NOTE | 2017-06-21 06:00 | NUR ---
PT KEPT COMFORTABLE. ON MORPHINE DRIP AT 6CC/HR. SHALLOW BREATHING WITH PERIODS OF APNEA LASTING 20 SECONDS. AUDIBLE GURGLING HEARD. NOT IN ACUTE DISTRESS. NO SIGNS OF PAIN OR DISCOMFORT. DAUGHTER AT BEDSIDE. CONTINUE WITH CURRENT PLAN OF CARE.
[2017-06-21] MEDS ORDERED: PANTOPRAZOLE SODIUM 40 MG TABLET.DR PO SCH (07:00)
[2017-06-21] MEDS ORDERED: FOLIC ACID/VITAMIN B COMP W-C TABLET PO SCH (09:00)
[2017-06-21] MEDS ORDERED: CEFTRIAXONE 1 G in IV DEXTROSE 5% 50 ML IV ONE (09:00)
[2017-06-21] MEDS ORDERED: ASPIRIN EC 81 MG TABLET.DR PO SCH (09:00)
[2017-06-21 10:52] VITALS: BP 115/59
[2017-06-21 15:06] VITALS: BP 97/46
[2017-06-21] MEDS: MORPHINE SULFATE PF IV DRIP 250 MG in IV DEXTROSE 5% 240 ML IV PRN (16:38)
--- NOTE | 2017-06-21 18:54 | NUR ---
PATIENT CONTINUE IN COMFORT MEASURES. FAMILY MEMBERS AT THE BEDSIDE. PATIENT SEEMED COMFORTABLE. NEW BAG OF MORPHINE IS ADMINISTERED AT THE MOMENT.
--- NOTE | 2017-06-21 19:39 | NUR ---
received patient on Morphine drip for comfort measure,shallow breathing with period of apnea noted,pulse palpable,no s/s of discomfort,family at bedside.
--- NOTE | 2017-06-22 06:30 | NUR ---
PATIENT APPEARS COMFORTABLE TITRATED MORPHINE DRIP TO 13MG/HR,SHALLOW RESPIRATION,WEAK PULSE.
--- NOTE | 2017-06-22 07:30 | NUR ---
RECEIVED SHIFT REPORT FROM CAR RACER NURSE. PATIENT CURRENTLY RESTING COMFORTABLY IN BED, NO S/S OF DISTRESS. ON MORPHINE DRIP AT 14 MG/ML. WILL CONTINUE TO MONITOR AND TITRATE ORDERED BY MD.
[2017-06-22 10:59] VITALS: BP 67/30
[2017-06-22] MEDS: MORPHINE SULFATE PF IV DRIP 250 MG in IV DEXTROSE 5% 240 ML IV PRN ×2 (14:03→14:08)
--- NOTE | 2017-06-22 18:05 | NUR ---
PATIENT APNEIC FOR 5 MINUTES, PUPILS FIXED AND DILATED, NO AUDIBLE HEART TONES, AND BREATH SOUNDS FOR 1-MINUTE, NO PALPABLE PULSES FOR 1 MINUTE, NO CORNEAL REFLEXES. CHARGE NURSE PRONOUNCED TIME OF AT 1805.
--- NOTE | 2017-06-22 18:30 | NUR ---
[facility] CALLED AND PROVIDED INFORMATION TO THEM. RECEIVED REFERRAL NUMBER. WAS GIVEN PERMISSION TO RELEASE PATIENT TO THE SELECTED MORTUARY. PATIENT'S FAMILY, FITO (POWER OF FABRICATOR [employer] FURNACE) AWARE OF SITUATION, AND HAS CONTACTED THE MORTUARY.
--- NOTE | 2017-06-22 21:00 | NUR ---
POST MORTEM CARE DONE, PUT LABELS ON TOES, AND BODY BAGS.
--- NOTE | 2017-06-23 | NUR ---
BODY WAS PICKED UP BY MORTUARY CHOSEN BY FAMILY.
== END 2017-06-22 18:05 | disposition expired | DRG 871 ==
LOC: ER 09:54 → MED 13:41
PROVIDERS: ADMIT Internal Medicine; ATTEND Internal Medicine
DX: A41.9 Sepsis, unspecified organism (principal); Z51.5 Encounter for palliative care; Z66 Do not resuscitate; I21.4 Non-ST elevation (NSTEMI) myocardial infarction; E43 Unspecified severe protein-calorie malnutrition; I13.2 Hypertensive heart and chronic kidney disease with heart failure and with stage 5 chronic kidney disease, or end stage renal disease; J96.01 Acute respiratory failure with hypoxia; J96.02 Acute respiratory failure with hypercapnia; I48.91 Unspecified atrial fibrillation; J18.9 Pneumonia, unspecified organism; E87.2 Acidosis; N18.6 End stage renal disease; G62.9 Polyneuropathy, unspecified; J44.0 Chronic obstructive pulmonary disease with (acute) lower respiratory infection; J44.1 Chronic obstructive pulmonary disease with (acute) exacerbation; Z68.1 Body mass index [BMI] 19.9 or less, adult; I50.32 Chronic diastolic (congestive) heart failure; I50.9 Heart failure, unspecified; Z99.2 Dependence on renal dialysis; K21.9 Gastro-esophageal reflux disease without esophagitis; E78.5 Hyperlipidemia, unspecified; E87.6 Hypokalemia; Z79.02 Long term (current) use of antithrombotics/antiplatelets; Z79.899 Other long term (current) drug therapy; Z79.82 Long term (current) use of aspirin; Z79.891 Long term (current) use of opiate analgesic; I25.10 Atherosclerotic heart disease of native coronary artery without angina pectoris; I73.9 Peripheral vascular disease, unspecified; F03.90 Unspecified dementia, unspecified severity, without behavioral disturbance, psychotic disturbance, mood disturbance, and anxiety
CPT/HCPCS: 36415; 36600; 70030-TC; 71045; 83605; 85025; 85610; 87040; 87077; 93005; A4663; J0696; J1940; J2060; J2270; J2274; J2310; J2930; J3480; J3490; J3590; J7050; J7060